=== PATIENT | female | born 1945 | race Caucasian/White ===

== ENCOUNTER 2020-09-28 15:20 | Emergency (ER) | payer MEDICARE, BC ==
[~2020-09-28] VITALS: Ht 167.6 cm; Wt 50.0 kg
[2020-09-28 17:06] LABS: BASOPHILS # (AUTO) 0.1 X10'3 (0-0.2); BASOPHILS % (AUTO) 0.5 % (0-1); EOSINOPHILS % (AUTO) 0 % (0-6); HEMOGLOBIN 7.7 g/dl (12.0-16.0); LYMPHOCYTES # (AUTO) 0.8 X10'3 (1.1-4.8); LYMPHOCYTES % (AUTO) 7.3 % (21-51); MEAN CORPUSCULAR HEMOGLOBIN 33.8 PG (27.0-31.0); MEAN CORPUSCULAR HGB CONC 33.7 g/dL (33.0-36.5); MEAN CORPUSCULAR VOLUME 100.3 FL (78-98); MEAN PLATELET VOLUME 10.2 FL (7.4-10.4); MONOCYTES # (AUTO) 0.5 X10'3 (0-0.9); MONOCYTES % (AUTO) 4.2 % (2-12); PLATELET COUNT 186 X10'3 (140-440); RED BLOOD COUNT 2.29 X10'6 (4.20-5.60); RED CELL DISTRIBUTION WIDTH 13.1 % (11.5-14.5); WHITE BLOOD COUNT 11.4 X10'3 (4.5-11.0)
[2020-09-28] MEDS ORDERED: ondansetron/PF 4mg/2ml inj IV ONE (17:15)
[2020-09-28] MEDS ORDERED: normal saline 1000ML IV soln IVB ONE (17:15)
[2020-09-28] MEDS ORDERED: morphine 4 MG/ML inj SYRINge IV ONE ×3 (17:15→22:20)
[2020-09-28 17:22] LABS: ALANINE AMINOTRANSFERASE 22 U/L (12-78); ALBUMIN 3.8 G/DL (3.4-5.0); ALBUMIN/GLOBULIN RATIO 1.3 (1.1-1.5); ALKALINE PHOSPHATASE 57 IU/L (46-116); ANION GAP 8 (8-16); ASPARTATE AMINO TRANSFERASE 19 U/L (10-37); BILIRUBIN,TOTAL 0.7 MG/DL (0.1-1.0); BLOOD UREA NITROGEN 14 MG/DL (7-18); BUN/CREATININE RATIO 15.7 (6.6-38.0); CALCIUM 9.4 MG/DL (8.5-10.1); CHLORIDE 102 MMOL/L (99-107); CREATININE 0.89 MG/DL (0.40-0.90); GLUCOSE 127 MG/DL (70-104); LIPASE 58 U/L (73-393); POTASSIUM 4.2 MMOL/L (3.5-5.1); SODIUM 137 MMOL/L (135-145); TOTAL CARBON DIOXIDE 27.4 MMOL/L (24-32); TOTAL PROTEIN 6.8 G/DL (6.4-8.2); eGFR 62 ML/MIN
[2020-09-28] MEDS ORDERED: iohexol 300mg/ml 100ml inj. ONE (17:28)
[2020-09-28 19:58] LABS: CLARITY,URINE CLEAR (Clear); COLOR,URINE YELLOW (Yellow); GLUCOSE, URINE NEGATIVE (Neg); KETONES,URINE NEGATIVE (Neg); LEUKOCYTE ESTERASE ,URINE NEGATIVE (Neg); NITRITES, URINE NEGATIVE (Neg); OCCULT BLOOD,URINE NEGATIVE (Neg); PROTEIN,URINE NEGATIVE (Neg); UROBILINOGEN,URINE 0.2 E.U/dL (0.2-1.0)
[2020-09-28 20:00] LABS: UA COLLECTION TYPE CLN CATCH MIDSTREAM
--- NOTE | 2020-09-28 22:59 | NUR ---
[facility] CALLED FOR PT INFORMATION AND UPDATE NEEDED FOR TRANSFER.
[2020-09-29] MEDS: morphine 10mg/ml inj. IV PRN ×3 (01:42→10:19)
--- NOTE | 2020-09-29 03:47 | NUR ---
CALLED [facility] FOR TRANSPOT, ETA 09-30-2020 5AM-9AM
--- NOTE | 2020-09-29 05:32 | NUR ---
[facility] ETA [id number] 5-6AM
--- NOTE | 2020-09-29 07:15 | NUR ---
Dr Alonzo at bedside.
[2020-09-29] MEDS ORDERED: ondansetron/PF 4mg/2ml inj IV ONE ×2 (07:25→10:15)
[2020-09-29 07:30] VITALS: BP 138/62
--- NOTE | 2020-09-29 09:12 | NUR ---
Dr Alonzo at bedside speaking with pt and her daughter.
--- NOTE | 2020-09-29 09:18 | NUR ---
Pt willing to go to [facility] via air transport. Contacted dispatch to arrange transport.
--- NOTE | 2020-09-29 09:30 | NUR ---
Tried to call report to [facility]. They have to assign the patient to a nurse.
--- NOTE | 2020-09-29 10:08 | NUR ---
Reach here for transport of pt to [facility]. Report given to flight nurse Debby.
--- NOTE | 2020-09-29 10:20 | NUR ---
Morphine given early per verbal order from Dr Alonzo for pain control in flight to [facility].
== END 2020-09-29 10:30 | disposition short-term general hospital (02) ==
LOC: ER 15:20
DX: R19.00 Intra-abdominal and pelvic swelling, mass and lump, unspecified site (principal); R18.8 Other ascites; R10.11 Right upper quadrant pain; D64.9 Anemia, unspecified; R11.0 Nausea; Z20.828 Contact with and (suspected) exposure to other viral communicable diseases; Z72.89 Other problems related to lifestyle; Z88.0 Allergy status to penicillin
CPT/HCPCS: 36415; 74177; 80053; 81003; 83690; 85025; 87635; 93005; 96374; 96375; 96376; 99285; C9803; J2270; J2405; J7030; Q9967

== ENCOUNTER 2021-09-19 13:10 | Emergency (ER) | payer OTHER, MEDICARE, BC ==
[~2021-09-19] VITALS: Ht 165.1 cm; Wt 50.0 kg
[2021-09-19 14:03] VITALS: BP 147/74
== END 2021-09-19 14:55 | disposition home or self-care (01) ==
LOC: ER 13:10
DX: M54.50 Low back pain, unspecified (principal); Z72.89 Other problems related to lifestyle; Z88.0 Allergy status to penicillin; V99.XXXA Unspecified transport accident, initial encounter; Y93.89 Activity, other specified; Y92.89 Other specified places as the place of occurrence of the external cause; Y99.8 Other external cause status
CPT/HCPCS: 99283

== ENCOUNTER 2022-09-17 10:44 | Outpatient (CLI) | payer MEDICARE | END 2022-09-17 23:59 | disposition home or self-care (01) | LOC: RAD 10:44 | PROVIDERS: ATTEND Internal Medicine | DX: R10.12 Left upper quadrant pain (principal); Z87.19 Personal history of other diseases of the digestive system; Z98.890 Other specified postprocedural states | CPT/HCPCS: 74250 ==